=== PATIENT | male | born 1940 | race American Indian/Alaskan Native ===

== ENCOUNTER 2016-09-15 08:20 | Day surgery (SDC) | payer MEDICARE ==
[2016-08-08 13:28] VITALS: BMI 25.9
[2016-09-15] MEDS ORDERED: Lidocaine 1% Inj (20ml) ONE (11:52)
[2016-09-15 12:35] VITALS: BP 132/71; PULSE 82; RESP 18; TEMP 98; O2SAT 100
--- NOTE | 2016-09-26 07:09 | OP ---
PROCEDURE DATE: 09/15/2016 PREOPERATIVE DIAGNOSIS: Unnecessary intravascular device. POSTOPERATIVE DIAGNOSIS: Unnecessary intravascular device. PROCEDURE CARRIED OUT: Removal of PermCath right jugular vein. The patient was given local anesthesia. The previous sutures were cut. Pressure was applied to the site. The catheter was removed. There were no operative complications or problems. OPERATION CARRIED OUT: Removal of PermCath. Devonte Haley Jr., MD cc: [id number] TT: 09/23/2016 14:49:04 en
== END 2016-09-15 12:36 | disposition home or self-care (01) ==
LOC: C.SDS 08:20
PROVIDERS: ATTEND Surgery Vascular Surgery
DX: Z45.2 Encounter for adjustment and management of vascular access device (principal); N19 Unspecified kidney failure

== ENCOUNTER 2018-03-03 17:48 | Emergency (ER) | payer MEDICARE ==
[2018-03-03 17:49] VITALS: BMI 25.9
[2018-03-03 18:01] VITALS: RESP 18
--- NOTE | 2018-03-03 19:35 | C.PDOC ---
History Of Present Illness 77 year old male presents to ED after dislodging his right second toenail a week ago. States he took Epsom salts and alcohol. Denies any discharge, weakness, or numbness. Time Seen by Provider: 03/03/18 19:06 Chief Complaint (Nursing): Lower Extremity Problem/Injury History Per: Patient History/Exam Limitations: no limitations Onset/Duration Of Symptoms: Days Current Symptoms Are (Timing): Still Present Past Medical History Reviewed: Historical Data, Nursing Documentation, Vital Signs Vital Signs: Last Vital Signs Temp 98.5 F 03/03/18 17:53 Pulse 102 H 03/03/18 17:53 Resp 18 03/03/18 17:53 BP 194/73 H 03/03/18 17:53 Pulse Ox 99 03/03/18 17:53 - Medical History PMH: Cardia Arrhythmia (bradycardia), CHF, Diabetes, Gall Bladder Disease, HTN, Peripheral Edema, End Stage Renal Disease (m.w.f), Chronic Kidney Disease Surgical History: Cholecystectomy, Coronary Stent (3 YEARS AGO), Endoscopy Family History: States: No Known Family Hx - Social History Hx Tobacco Use: No Hx Alcohol Use: No Hx Substance Use: No - Immunization History Hx Tetanus Toxoid Vaccination: No Hx Influenza Vaccination: Yes Hx Pneumococcal Vaccination: No Review Of Systems Except As Marked, All Systems Reviewed And Found Negative. Constitutional: Negative for: Fever, Chills Respiratory: Negative for: Shortness of Breath Gastrointestinal: Negative for: Nausea, Vomiting Musculoskeletal: Positive for: Other (R second toe pain) Neurological: Negative for: Weakness, Numbness Physical Exam - Physical Exam Appears: Non-toxic, No Acute Distress Skin: Warm, Dry Head: Atraumatic, Normacephalic Eye(s): bilateral: Normal Inspection Oral Mucosa: Moist Cardiovascular: Rhythm Regular Respiratory: Normal Breath Sounds, No Rales, No Rhonchi, No Wheezing Gastrointestinal/Abdominal: Soft, No Tenderness Extremity: Capillary Refill (less than 2 seconds), Swelling (and inflammation of distal R second toe), Other (Loose R second toenail and decreased sensation) Neurological/Psych: Oriented x3, Normal Speech Gait: Steady ED Course And Treatment O2 Sat by Pulse Oximetry: 99 (RA) Pulse Ox Interpretation: Normal Progress Note: R end tonail removed by Pod's Terry- see note for details. to f/u [facility] 03/12, no PO ABX, Bacitracin ointment daily. Medical Decision Making Medical Decision Making: Impression: Right Toe Pain Plan: --Left Foot X-Ray --Right Foot X-Ray --Ultram Discussed with podiatry resident who will come and see the patient. Disposition Doctor Will See Patient In The: Office Counseled Patient/Family Regarding: Studies Performed, Diagnosis - Disposition Disposition: HOME/ ROUTINE Disposition Time: 21:13 Condition: GOOD Forms: [facility] [facility] (Latvian) - Clinical Impression Clinical Impression: Avulsion of toenail of right foot - Scribe Statement The provider has reviewed the documentation as recorded by the Scott Raines Provider Attestation: All medical record entries made by the Scott were at my direction and personally dictated by me. I have reviewed the chart and agree that the record accurately reflects my personal performance of the history, physical exam, medical decision making, and the department course for this patient. I have also personally directed, reviewed, and agree with the discharge instructions and disposition.
[2018-03-03] MEDS ORDERED: Lidocaine 1% Inj (20ml) INFIL STA (20:47)
[2018-03-03] MEDS ORDERED: Bacitracin 500 Units/gm Oint Foilpak UD ONE (20:59)
[2018-03-03] MEDS ORDERED: Lidocaine Hydrochloride 5 ML INJ ONE (21:05)
[2018-03-03 21:37] VITALS: BP 132/74; PULSE 86; TEMP 98.1; O2SAT 96
--- NOTE | 2018-03-04 07:29 | CP.PCM.CON ---
History of Present Illness - History of Present Illness History of Present Illness: Podiatry - Dr. Palacios 77 year old male patient seen and evaluated in ED concerning right 2nd digit pain. Patient reports 1 week ago he believes he struck his toe against something, dislodging his nail; since injury he has reported worsening pain with and without ambulation. Patient states he has been soaking his digit in Epsom salts and using rubbing alcohol for alleviation of symptoms. Patient reports occasional numbness/burning/tingling in his feet. Offers no other pedal complaints. Denies N/V/F/D/C/SOB/HIGGINS. PMH: Cardia Arrhythmia (bradycardia), CHF, Diabetes, Gall Bladder Disease, HTN, Peripheral Edema, End Stage Renal Disease (m.w.f), Chronic Kidney Disease PSH: Cholecystectomy, Coronary Stent (3 YEARS AGO), Endoscopy, AV fistula placement FH: States: No Known Family Hx SH: denies ETOH/tobacco/illicit drug use All: NKDA Review of Systems - Review of Systems All systems: reviewed and no additional remarkable complaints except (as per HPI) Past Patient History - Infectious Disease Hx of Infectious Diseases: None - Past Medical History & Family History Past Medical History?: Yes - Past Social History Smoking Status: Never Smoked - CARDIAC Hx Cardia Arrhythmia: Yes (bradycardia) Hx Congestive Heart Failure: Yes Hx Hypertension: Yes Hx Peripheral Edema: Yes - PULMONARY Hx Respiratory Disorders: No - NEUROLOGICAL Hx Neurological Disorder: No - HEENT Hx HEENT Problems: No - RENAL Hx Chronic Kidney Disease: Yes - ENDOCRINE/METABOLIC Hx Endocrine Disorders: No - HEMATOLOGICAL/ONCOLOGICAL Hx Blood Disorders: No - INTEGUMENTARY Hx Dermatological Problems: No - MUSCULOSKELETAL/RHEUMATOLOGICAL Hx Musculoskeletal Disorders: No - GASTROINTESTINAL Hx Gall Bladder Disease: Yes - GENITOURINARY/GYNECOLOGICAL Hx Genitourinary Disorders: Yes (renal failure) Other/Comment: renal failure/dialysis - PSYCHIATRIC Hx Substance Use: No - SURGICAL HISTORY Hx Cholecystectomy: Yes Hx Coronary Stent: Yes (3 YEARS AGO) - ANESTHESIA Hx Anesthesia: Yes Hx Anesthesia Reactions: No Hx Malignant Hyperthermia: No Meds Allergies/Adverse Reactions: Allergies Allergy/AdvReac Type Severity Reaction Status Date / Time No Known Allergies Allergy Verified 03/03/14 09:03 Physical Exam - Constitutional Appears: Well, Non-toxic, No Acute Distress - Extremities Exam Additional comments: RLE focused physical exam: VASC: DP and PT pulses palpable 2/4. CFT <3 seconds to all digits. Temperature gradient warm to warm, with no increase surrounding 2nd digit. Nonpitting edema noted to forefoot and 2nd digit. NEURO: Gross sensation diminished. DERM: Nail 2 partially avulsed along distal half; following avulsion nail bed n oted to have a full thickness wound extending into subcutaneous tissue; no probe to bone; no drainage noted; no purulence; no fluctuance; no periwound erythema. ORTHO: Pain on palpation 2nd digit nail bed, pain upon 2nd digit DIPJ/PIPJ/MPJ ROM. Muscle strength 5/5 for all dorsiflexors, plantarflexors, inverters, and everters. - Neurological Exam Neurological exam: Alert, Oriented x3 - Psychiatric Exam Psychiatric exam: Normal Affect, Normal Mood Results - Vital Signs Recent Vital Signs: Last Vital Signs Temp 98.1 F 03/03/18 21:36 Pulse 86 03/03/18 21:36 Resp 18 03/03/18 21:36 BP 132/74 03/03/18 21:36 Pulse Ox 96 03/03/18 21:36 Assessment & Plan - Assessment and Plan (Free Text) Assessment: 77M PMHx Cardiac Arrhythmia (bradycardia), CHF, Diabetes, Gall Bladder Disease, HTN, Peripheral Edema, End Stage Renal Disease (m.w.f), Chronic Kidney Disease with partial traumatic avulsion right 2nd digit nail, non-infected Plan: Patient seen and evaluated Discussed with attending, Dr. Palacios Afebrile 1% lidocaine digital block performed w/o incident Total temporary nail avulsion performed; wound bed examined w/no signs of active infection Betadine applied to nail bed and dressed with DSD Advised patient to keep dressing clean/dry/intact for 24 hours; following this may remove dressing and start QD applications of antibiotic ointment and bandage - patient demonstrates verbal understanding Recommend OTC analgesics Tylenol/Ibuprofen PRN pain Patient to follow up with Dr. Palacios in the podiatry clinic on Monday 03/12 for follow up Thank you for the consult
--- NOTE | 2018-03-04 10:06 | RAD ---
Date of service: 03/03/2018 PROCEDURE: HISTORY: lifted R 2nd toenail lifted, ? osteo COMPARISON: No prior study available for comparison TECHNIQUE: Three views of the right great toe performed FINDINGS: No evidence of acute displaced fracture nor dislocation. Osseous structures appear intact with no cortical destructive changes. There is mild hallux valgus deformity with mild DJD 1st MTP joint. Mild vascular calcifications are also present. IMPRESSION: No acute displaced fractures nor dislocations. No evidence of osteomyelitis. Mild hallux valgus deformity with mild DJD 1st MTP joint
== END 2018-03-03 21:37 | disposition home or self-care (01) ==
LOC: C.ER 17:48
DX: S91.204A Unspecified open wound of right lesser toe(s) with damage to nail, initial encounter (principal); W22.8XXA Striking against or struck by other objects, initial encounter

== ENCOUNTER 2018-06-04 11:30 | Day surgery (SDC) | payer MEDICARE ==
[2018-05-11 10:21] VITALS: BMI 24.4
[2018-06-04 12:49] VITALS: BP 135/76; PULSE 92; RESP 20; TEMP 97.7; O2SAT 96
[2018-06-04 13:03] LABS: PROTHROMBIN TIME 11.4 SECONDS (9.7-12.2)
[2018-06-04 14:02] LABS: CALCIUM 8.5 mg/dl (8.6-10.4)
== END 2018-06-04 14:42 | disposition home or self-care (01) ==
LOC: C.SDS 11:30
PROVIDERS: ATTEND Urology
DX: Z53.8 Procedure and treatment not carried out for other reasons (principal); R97.20 Elevated prostate specific antigen [PSA]; Z99.2 Dependence on renal dialysis; N40.1 Benign prostatic hyperplasia with lower urinary tract symptoms